=== PATIENT | female | born 2000 | race Asian ===

== ENCOUNTER 2023-07-02 20:34 | Emergency (ER) | payer SELFPAY ==
[2023-07-02 22:04] LABS: Acetaminophen Less than 10 mcg/mL (10.0-30.0); Alcohol Less than 10.0 mg/dL (Less than 10); Magnesium 1.6 mg/dL (1.6-2.6); Salicylate Less than 8.0 mg/dL (15.0-30.0)
[2023-07-02 22:06] LABS: ALT (SGPT) 26 U/L (8-55); AST (SGOT) 30 U/L (5-34); Albumin 4.1 g/dL (3.5-5.0); Alkaline Phosphatase 52 U/L (40-110); Anion Gap 16 mmol/L (10-20); BUN (Urea Nitrogen) 6 mg/dL (7.0-18.7); Bilirubin, Total 0.8 mg/dL (0.2-1.2); CK (CPK) 162 U/L (29-168); Calc. Creatinine Clearance 0 mL/min (70-130); Calcium 8.3 mg/dL (7.8-10.44); Carbon Dioxide 18 mmol/L (22-29); Chloride 78 mmol/L (98-107); Estimated GFR 137; Globulin 2.5 g/dL (2.4-3.5); Glucose 74 mg/dL (70-105); Protein, Total 6.6 g/dL (6.0-8.3)
[2023-07-02 22:08] LABS: #Monocytes 0.1 thou/uL (0.11-0.59); #Neutrophils 2.1 thou/uL (1.40-6.50); %Basophils 0.4 % (0.0-1.0); %Lymphocytes 16.2 % (21.0-51.0); %Monocytes 4.5 % (0.0-10.0); %Neutrophils 78.5 % (42.0-75.0); Hematocrit 28.1 % (36.0-47.0); Hemoglobin 10.5 g/dL (12.0-16.0); Mean Corpuscular HGB CONC 37.4 g/dL (32.0-36.0); Mean Corpuscular Hemoglobin 38.6 pg (27.0-31.0); Mean Corpuscular Volume 103.3 fl (78.0-98.0); Mean Platelet Volume 10.5 fL (7.4-10.4); Platelet Count 120 10x3/uL (130-400); RBC Distribution Width 10.7 % (11.5-14.5); Red Blood Cell (RBC) Count 2.72 mill/uL (4.20-5.40); White Blood Cell (WBC) Count 2.7 10x3/uL (4.8-10.8)
[2023-07-02 22:10] LABS: Critical Call Chemistry NUR.SH13@2210; Sodium 108 mmol/L (136-145)
[2023-07-02 23:01] LABS: Amphetamine Not Detected (NotDetected); Barbiturates Screen Not Detected (NotDetected); Benzodiazepine Screen Not Detected (NotDetected); Cocaine Metabolite Screen Not Detected (NotDetected); Methadone Not Detected (NotDetected); Methamphetamine Not Detected (NotDetected); Opiate Screen Not Detected (NotDetected); Oxycodone Screen Not Detected (NotDetected); Phencyclidine (PCP) Not Detected (NotDetected); THC/Cannabinoid Screen Not Detected (NotDetected); Tricyclic Screen Not Detected (NotDetected)
[2023-07-02 23:03] LABS: Bacteria/HPF None Seen HPF (None Seen); Bilirubin Negative (Negative); Blood, Urine Negative (Negative); CAUTI Indications for Culture Alt mental st,lethar; Clarity Clear (Clear); Glucose, Urine (Dipstick) 70 mg/dL (Negative); Ketone, Urine Negative (Negative); Leukocyte Negative Leu/uL (Negative); Nitrite Negative (Negative); Protein, Urine (Dipstick) Negative (Neg-Trace); RBC/HPF 0-3 HPF (0-3); Specific Gravity, Urine 1.004 (1.002-1.036); Squamous Epithelial None Seen HPF (0-3); Urobilinogen Normal mg/dL (Less than 2); WBC/HPF 0-3 HPF (0-3); pH, Urine 7.5 (5.0-9.0)
[2023-07-02 23:04] LABS: Urine Culture Reflex No No
[2023-07-02 23:05] LABS: Anion Gap 13 mmol/L (10-20); BUN (Urea Nitrogen) 5 mg/dL (7.0-18.7); Calc. Creatinine Clearance 0 mL/min (70-130); Calcium 8.1 mg/dL (7.8-10.44); Carbon Dioxide 20 mmol/L (22-29); Chloride 80 mmol/L (98-107); Estimated GFR 136; Glucose 88 mg/dL (70-105)
[2023-07-02 23:09] LABS: Critical Call Chemistry NUR.SH13@2309; Sodium 109 mmol/L (136-145)
[2023-07-02 23:17] LABS: #Monocytes 0.2 thou/uL (0.11-0.59); #Neutrophils 2.1 thou/uL (1.40-6.50); %Basophils 0.4 % (0.0-1.0); %Monocytes 5.6 % (0.0-10.0); %Neutrophils 76.6 % (42.0-75.0); Hematocrit 28.2 % (36.0-47.0); Hemoglobin 10.8 g/dL (12.0-16.0); Mean Corpuscular HGB CONC 38.3 g/dL (32.0-36.0); Mean Corpuscular Hemoglobin 38.7 pg (27.0-31.0); Mean Corpuscular Volume 101.1 fl (78.0-98.0); Mean Platelet Volume 10.2 fL (7.4-10.4); Platelet Count 123 10x3/uL (130-400); RBC Distribution Width 10.5 % (11.5-14.5); Red Blood Cell (RBC) Count 2.79 mill/uL (4.20-5.40); White Blood Cell (WBC) Count 2.7 10x3/uL (4.8-10.8)
[2023-07-02] MEDS ORDERED: Dexamethasone 10 MG/ML VIAL ONE (23:28)
[2023-07-02] MEDS ORDERED: Thiamine HCl 200 MG/2 ML VIAL ONE (23:29)
[2023-07-02 23:53] LABS: SARS-CoV-2 NAA Rapid Test Not Detected (NotDetected)
[2023-07-03] MEDS ORDERED: Sodium Chloride 0.9% 100 ML ONE (01:23)
[2023-07-03] MEDS ORDERED: Vancomycin 1 GM/200 ML (FROZEN) BAG ONE (01:24)
[2023-07-03] MEDS ORDERED: cefTRIAXone (ROCEPHIN) 2 GM VIAL ONE (01:25)
[2023-07-03 01:27] LABS: Actual Bicarbonate (HCO3v) 17.9 mEq/L (22-28); Calcium, Ionized (venous) 1.01 mmol/L (1.16-1.32); Chloride (VBG) 97 mmol/L (98-106); Hematocrit-VBG 34 % (36.0-47.0); Hemoglobin (Hb) 11.6 g/dL (11.7-15.5); Potassium (VBG) 3.81 mmol/L (3.70-5.30); Sodium 124 mmol/L (133-146); pH (venous) 7.341 (7.32-7.43)
[2023-07-03 01:34] LABS: INR-International Normal Ratio 1.1; PTT 33.1 sec (22.9-36.1); Prothrombin Time 14.1 sec (12.0-14.7)
[2023-07-03 01:57] LABS: Bacteria/HPF None Seen HPF (None Seen); Bilirubin Negative (Negative); Blood, Urine Negative (Negative); CAUTI Indications for Culture Alt mental st,lethar; Clarity Clear (Clear); Glucose, Urine (Dipstick) Normal (Negative); Ketone, Urine Negative (Negative); Leukocyte Negative Leu/uL (Negative); Nitrite Negative (Negative); Protein, Urine (Dipstick) Negative (Neg-Trace); RBC/HPF None Seen HPF (0-3); Specific Gravity, Urine 1.001 (1.002-1.036); Squamous Epithelial None Seen HPF (0-3); Urobilinogen Normal mg/dL (Less than 2); WBC/HPF 0-3 HPF (0-3)
[2023-07-03 02:01] LABS: Urine Culture Reflex No No
== END 2023-07-03 02:06 | disposition short-term general hospital (02) ==
LOC: ERS 20:34
DX: R41.82 Altered mental status, unspecified (principal); E87.1 Hypo-osmolality and hyponatremia
CPT/HCPCS: 36415; 51702; 70450; 70486; 71045; 72125; 80053; 80306; 80307; 81001; 82533; 82550; 82805; 83605; 83735; 83930; 83935; 84443; 85025; 85610; 85730; 86140; 87040; 93005; 96361; 96365; 96367; 96375; J0696; J1100; J3370-JW; J3411; J3490; J7131